=== PATIENT | female | born 1945 | race Caucasian/White ===

== ENCOUNTER 2017-08-29 05:32 | Inpatient (IN) | payer MEDICARE ==
[~2017-08-29] VITALS: Ht 152.4 cm; Wt 66.3 kg
[~2017-08-29 05:32] MED LIST: ALLO100T PO; AMLO5 PO; ERGO50000 PO; FERR325T PO; LORA0.5T PO; METO25 PO; MULT-65 PO; SODI650T PO; ZOLP5TAB3 PO
[2017-08-29] MEDS ORDERED: LACTATED RINGER'S 1000 ML IV PRN (06:15)
[2017-08-29] MEDS ORDERED: SODIUM CHLORID 0.9% 500 ML IV PRN (06:15)
[2017-08-29] MEDS ORDERED: DEXAMETHASONE SOD PHOS 20 MG/5 ML VIAL IV SCH (06:15)
[2017-08-29] MEDS ORDERED: METOPROLOL TARTRATE 25 MG TAB PO PRN (06:15)
[2017-08-29] MEDS ORDERED: ceFAZolin 2 GM PREMIX 50 ML IV SCH (06:15)
[2017-08-29] MEDS ORDERED: POVIDONE IODINE 7.5% SCRUB 118 ML BOTTLE TOPICAL SCH (06:15)
--- NOTE | 2017-08-29 06:56 | HHI.DCPOC ---
Discharge Care Plan Diagnosis: (1) Primary localized osteoarthrosis, lower leg (2) Status post total knee replacement, right Your Health Problems Are: Difficulty with ADL Goals to Promote Your Health * To prevent worsening of your condition and complications * To maintain your health at the optimal level Directions to Meet Your Goals Take your medications as prescribed Follow your dietary instruction Follow activity as directed Keep your appointments as scheduled Take your immunizations and boosters as scheduled If your symptoms worsen call your PCP, if no PCP go to Urgent Care Center or Emergency Room Smoking is Dangerous to Your Health. Avoid second hand smoke Call the 24-hour hour crisis hotline for domestic abuse at Antoni Feliciano Aug 29, 2017 06:56
[2017-08-29] MEDS ORDERED: BUPIVACAINE LIPOSOME PF 1.3% 20 ML VIAL ONE ×2 (06:58→08:29)
--- NOTE | 2017-08-29 06:58 | HHI.FF ---
Face to Face Verification Diagnosis: (1) Primary localized osteoarthrosis, lower leg (2) Status post total knee replacement, right Physical Therapy Gait training, Transfer training, bed to chair Knee: Total knee Nursing Nursing: Renée teaching Additional Instructions first dressing change in the office I have seen patient Rashida Santos on 08/29/17. My clinical findings support the need for the requested home health care services because: Limited ability to care for self High risk of falls I certify that my clinical findings support that this patient is homebound because: Post-op weakness Unsteady gait/balance Antoni Feliciano Aug 29, 2017 06:58
[2017-08-29] MEDS ORDERED: COMMODE 3-IN-11 MIS (06:59)
[2017-08-29] MEDS ORDERED: WALKER WHEELS/F1 MIS (06:59)
[2017-08-29] MEDS ORDERED: CPMMACHINE (06:59)
[2017-08-29] MEDS ORDERED: GENTAMICIN SULFATE 80 MG/2 ML VIAL ONE (07:07)
[2017-08-29] MEDS ORDERED: ALLO100T PO (07:08)
[2017-08-29] MEDS ORDERED: AMLO5 PO (07:09)
[2017-08-29] MEDS ORDERED: FERR325T18 PO (07:09)
[2017-08-29] MEDS ORDERED: VITA500012 PO (07:10)
[2017-08-29] MEDS ORDERED: LORA0.5T PO (07:10)
[2017-08-29] MEDS ORDERED: METO25TA3 PO (07:11)
[2017-08-29] MEDS ORDERED: SODI325T PO (07:12)
[2017-08-29] MEDS ORDERED: ZOLP5TAB3 PO (07:12)
[2017-08-29] MEDS ORDERED: SODIUM CHLORIDE 0.9% IV SCH ×2 (08:30→12:00)
[2017-08-29] MEDS ORDERED: TRANEXAMIC ACID IV SCH ×2 (08:30→12:00)
[2017-08-29] MEDS: VANCOMYCIN 1000 MG/NS 250 ML (for <70 kg) IV SCH ×4 (08:40→11:26)
[2017-08-29] MEDS: ROPIVACAINE PERI-ARTICULAR INJECTION. P-ARTICULR SCH ×10 (09:24→11:25)
--- NOTE | 2017-08-29 10:27 | PD.OP ---
cc: Manny Zarate MD Operative Report Date of Surgery: Aug 29, 2017 Preoperative Diagnosis: Right knee severe osteoarthritis Postoperative Diagnosis: Same plus significant osteoporosis Procedure: Right total knee arthroplasty Anesthesia: General anesthesia and adductor canal block Surgeon: Manny Zarate Scientist Propagator(s): DIO Patel The surgical procedure was assisted by my Advanced Registered Nurse Practitioner. My MANAGER MARKETING COMMUNICATIONS presence was necessary throughout this case for the manipulation and positioning of the surgical extremity. My MANAGER MARKETING COMMUNICATIONS was assisting me throughout the duration of this procedure. The skill set of an Advance Registered Nurse Practitioner was medically necessary to complete this procedure. During the surgical case, the operating room surgical technologist was working at the back table and the Advance Registered Nurse Practitioner was directly assisting me. Operation and Findings: IMPLANTS: DePuy Attune: Patella: size 32. Femur, posterior stabilized size 6. Tibia, rotating platform size 6. Tibial insert, rotating platform, posterior stabilized size 5 mm thickness. ESTIMATED BLOOD LOSS: 150 cc TOURNIQUET TIME: 43 minutes at 250 mmHg pressure. JUSTIFICATION FOR PROCEDURE: The patient has end-stage osteoarthritis to the knee. There is an attached conservative measures pathway form in the chart that describes the nonoperative measures that were undertaken prior to consideration of surgical management. The patient understood the risks and benefits of surgical management. See my office notes for further details PROCEDURE: The patient was brought back to the operative theatre. Adequate anesthesia was obtained. The patient received intravenous vancomycin and Ancef. The lower extremity was prepped and draped in the usual sterile fashion.The leg was exsanguinated, the tourniquet was raised. A standard anterior incision was performed followed by medial parapatellar arthrotomy was performed. End-stage arthritis was identified. Osteotomy of the patella was performed. It was at this point that we noticed the patient had extreme osteoporosis and the bone was very thin. This was consistent with all of the remaining portion of the surgery when handling the bone. We took extreme care on each step so as not to produce a fracture. We drilled holes for the patella. We trialed the patella component. We placed an intramedullary guide into the distal femur. We ultimately resected 14 mm off of the distal femur in 5 degrees of valgus. The remnants of the ACL and PCL were resected. Osteotomy of the proximal tibia was performed, resecting 5 mm off of the medial side. This was done with 3 degrees of posterior slope using an extramedullary guide. The distal end of the guide was placed in the mid aspect of the ankle. The femur was sized, and four chamfer cuts were completed in 3 of external rotation. We then cut the central box in the distal femur to replace the PCL. We resected the remnants of the menisci and removed osteophytes off of the femur and tibia. We then trialed the knee. We punched the tibia for the keel, and then used standard technique to cement in components. Excess cement was removed. We trialed the knee again and the final polyethylene thickness was chosen to provide extension to 0 degrees, and flexion of 140 degrees to gravity. The ligaments were appropriately balanced. Lateral release was necessary to obtain excellent patellofemoral tracking. The tourniquet was released and adequate hemostasis was obtained. An intra- articular injection of a ropivacaine cocktail was injected. The posterior knee was inspected for excess cement, which was removed. The final polyethylene was put into position after thorough irrigation. We then closed deep fascia with a #2 Stratafix followed by skin with 2-0 Vicryl followed by daniel. Postop plan is to weight-bear as tolerated. DVT prophylaxis will be performed with SCDs, ABHILASH hose, early mobilization, and Lovenox followed by aspirin. Additionally the patient will be need to evaluated for the osteoporosis and started on likely more aggressive management. Manny Zarate MD Aug 29, 2017 10:27
[2017-08-29] MEDS ORDERED: NORC5TAB PO (10:29)
[2017-08-29] MEDS ORDERED: ASPI-146 PO (10:29)
[2017-08-29] MEDS ORDERED: ENOX40IN SQ (10:29)
[2017-08-29] MEDS ORDERED: MAGNESIUM HYDROXIDE SUSP 30 ML CUP PO PRN (10:30)
[2017-08-29] MEDS ORDERED: ONDANSETRON HCL 4 MG/2 ML VIAL IVP PRN (10:30)
[2017-08-29] MEDS ORDERED: Post-op Orders (for Pharmacy) XX ONE (10:30)
[2017-08-29] MEDS ORDERED: ACETAMINOPHEN/HYDROcodone 325 MG/5 MG TAB PO PRN (10:30)
[2017-08-29] MEDS ORDERED: NALOXONE HCL 0.4 MG/ML AMP IV PUSH PRN (10:30)
[2017-08-29] MEDS ORDERED: ALUMINUM/MAGNESIUM/SIMETH 30 ML CUP PO PRN (10:30)
[2017-08-29] MEDS ORDERED: diphenhydrAMINE HCL 50 MG/ML VIAL IV PUSH PRN (10:30)
[2017-08-29] MEDS ORDERED: BISACODYL 10 MG SUPP RECTAL PRN (10:30)
[2017-08-29] MEDS ORDERED: ACETAMINOPHEN 1000 MG/100 ML 100 ML IV ONE (10:57)
[2017-08-29] MEDS ORDERED: DO NOT ADM ANY ANTICOAGULANT DRUGS PRN (11:00)
--- NOTE | 2017-08-29 11:11 | PD.CONS ---
HPI Service [facility] Hospitalists Consult Requested By Dr. Zarate Reason for Consult Post-op medical management Primary Care Physician Abhijeet Torrez MD Diagnoses: History of Present Illness This is a 72 year old female patient with a past medication history which includes ulcerative colitis/ileostomy, hx RCC s/p right nephrectomy, and stage 3 /4 ckd. Patient underwent total knee arthroplasty 08/29/17. We have been consulted for post-operative medical management. Patient in bed awake and alert. Offers no complaints at this time. Denies fevers, chills, N/V/D/C, chest pain or shortness of breath. Patient reports minimal post-op pain. Review of Systems Constitutional: DENIES: Fatigue, Fever, Chills Eyes: DENIES: Blurred vision, Diplopia, Vision loss Respiratory: DENIES: Cough, Sputum production, Shortness of breath Cardiovascular: DENIES: Chest pain, Palpitations, Dyspnea on Exertion Gastrointestinal: DENIES: Abdominal pain, Constipation, Diarrhea, Nausea, Vomiting Musculoskeletal: COMPLAINS OF: Joint pain (minimal), Stiffness Neurologic: DENIES: Headache, Seizures, Speech Problems Psychiatric: DENIES: Anxiety, Confusion, Depression Past Family Social History Past Medical History RCC s/p right nephrectomy 2003 Ulcerative colitis with colectomy and ileostomy right noel ckd stage 4. HTN Hyperlipidemia Osteoporosis Anxiety Vitamin D deficiency Mitral valve prolapse Cervical disc disease Past Surgical History Reduction and internal fixation of the left hip with cannulated screws With Dr. Brandon Mcgarry on 04/25/15 Total colectomy and ileostomy in 1991 Appendectomy JERRELL with BSO Tonsillectomy/Adenoidectomy Arthroscopy of both knees Reported Medications Enoxaparin Inj (Enoxaparin Sodium) 40 Mg/0.4 Ml Syr 40 Mg SQ DAILY Start Aspirin after Lovenox is completed. Ecotrin Regular Strength (Aspirin) 325 Mg Tabdr 325 Mg PO DAILY Start Aspirin after Lovenox is completed. [place] (Hydrocodone-Acetaminophen) 5 Mg-325 Mg Tab 1-2 Tab PO Q4H PRN Zolpidem (Zolpidem Tartrate) 5 Mg Tab 5 Mg PO HS PRN Sodium Bicarbonate 325 Mg Tab 325 Mg PO BIDPC Metoprolol Tartrate 25 Mg Tab 25 Mg PO BID Lorazepam 0.5 Mg Tab 0.5 Mg PO Q6H PRN Ergocalciferol 50,000 Unit Cap 50,000 Units PO Q7D Ferrous Sulfate 325 Mg (65 Mg Iron) Tablet 325 Mg PO DAILY Norvasc (Amlodipine Besylate) 5 Mg Tab 5 Mg PO DAILY Allopurinol 100 Mg Tab 100 Mg PO DAILY Multi-Vitamin Daily (Multiple Vitamin) 1 Tab Tab 1 Tab PO DAILY Allergies: Coded Allergies: diatrizoate meglumine (Unverified Allergy, Severe, 08/29/17) gadobenic acid (Unverified Allergy, Severe, 08/29/17) gadodiamide (Unverified Allergy, Severe, 08/29/17) gadoteridol (Unverified Allergy, Severe, 08/29/17) iodixanol (Unverified Allergy, Severe, 08/29/17) iohexol (Unverified Allergy, Severe, 08/29/17) lisinopril (Unverified Adverse Reaction, Severe, Hypotension, 08/29/17) BPS DROPPED DOWN TO 60 AFTER ONE DOSE OF LISINOPRIL - 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 AND HAD THE SAME THING HAPPEN sulfamethoxazole (Unverified Adverse Reaction, Severe, Swelling, 08/29/17) pt only has one kidney trimethoprim (Unverified Adverse Reaction, Severe, Swelling, 08/29/17) pt only has one kidney Active Ordered Medications Current Medications Medications (Trade) Dose Ordered Sig/Marilee Route Start Time Stop Time Status Last Admin Lactated Ringer's 1,000 ml @ 30 mls/hr Q24H PRN IV 08/29/17 06:15 09/01/17 06:14 08/29/17 07:10 Sodium Chloride 500 ml @ 30 mls/hr [id number] PRN IV 08/29/17 06:15 09/01/17 06:14 (Lopressor) 25 mg RENAL DIETITIAN PRN PO 08/29/17 06:15 09/01/17 06:14 (Betadine 7.5% Scrub) 1 applic ONCE TOPICAL 08/29/17 06:15 09/01/17 06:14 Cefazolin Sodium/ Dextrose 50 ml @ 100 mls/hr RENAL DIETITIAN IV 08/29/17 06:15 09/01/17 06:14 08/29/17 08:40 Vancomycin HCl 1000 mg/Sodium Chloride 250 ml @ 250 mls/hr RENAL DIETITIAN IV 08/29/17 06:15 09/01/17 06:14 08/29/17 08:40 Tranexamic Acid 558 mg/Sodium Chloride 105.58 ml @ 200 mls/ hr ONCE IV 08/29/17 08:30 08/29/17 14:30 08/29/17 09:08 Ropivacaine 24.63 ml/Ketorolac Tromethamine 30 mg/Epinephrine HCl 0.5 mg/ Clonidine 80 mcg/ Sodium Chloride 100 ml @ 200 mls/hr ONCE P-ARTICULR 08/29/17 08:30 08/29/17 14:30 08/29/17 09:24 (Decadron Inj) 10 mg RENAL DIETITIAN IV 08/29/17 06:15 08/30/17 06:14 08/29/17 07:14 (Zyloprim) 100 mg DAILY PO 08/30/17 09:00 UNV (Norvasc) 5 mg DAILY PO 08/30/17 09:00 UNV (Drisdol) 50,000 units Q7D PO 08/29/17 10:30 UNV (Ferrous Sulfate) 325 mg DAILY PO 08/30/17 09:00 UNV (Ativan) 0.5 mg Q6H PRN PO 08/29/17 10:30 UNV (Lopressor) 25 mg BID PO 08/29/17 21:00 UNV (Sodium Bicarbonate) 325 mg BIDPC PO 08/29/17 18:00 UNV (Ambien) 5 mg HS PRN PO 08/29/17 10:30 UNV Sodium Chloride 1,000 ml @ 100 mls/hr Q10H IV 08/29/17 10:23 UNV Cefazolin Sodium 1000 mg/Sodium Chloride 100 ml @ 200 mls/hr Q6H IV 08/29/17 10:30 08/29/17 22:59 UNV (Post-op Orders (for Pharmacy)) STAT ONCE XX 08/29/17 10:30 08/29/17 10:31 UNV (Decadron Inj) 10 mg ONCE ONCE IV 08/30/17 07:45 08/30/17 07:46 UNV (Lovenox Inj) 40 mg Q24H SQ 08/29/17 10:30 09/07/17 10:31 UNV ([place] 5-325 Mg) 1 tab Q4H PRN PO 08/29/17 10:30 UNV ([place] 5-325 Mg) 2 tab Q4H PRN PO 08/29/17 10:30 UNV Tranexamic Acid / Sodium Chloride 100 ml @ 200 mls/hr UNSCH IV 08/29/17 10:30 08/29/17 10:59 UNV (Theragran M Tab) 1 tab BID PO 08/30/17 21:00 10/29/17 20:59 UNV (Zofran Inj) 4 mg Q6H PRN IVP 08/29/17 10:30 UNV (Colace) 100 mg BID PO 08/30/17 21:00 UNV (Mag-Al Plus Susp Liq) 30 ml Q6H PRN PO 08/29/17 10:30 UNV (Dulcolax Supp) 10 mg DAILY PRN MA 08/29/17 10:30 UNV (Milk Of Magnesia Liq) 30 ml DAILY PRN PO 08/29/17 10:30 UNV (Narcan Inj) 0.4 mg UNSCH PRN IV PUSH 08/29/17 10:30 UNV (Benadryl Inj) 25 mg Q6H PRN IV PUSH 08/29/17 10:30 UNV (Morphine Inj) 2 mg Q3H PRN IV PUSH 08/29/17 10:30 UNV Family History Noncontributory Social History denies tobacco use or etoh use Physical Exam Vital Signs Vital Signs Date Time Temp Pulse Resp B/P (MAP) Pulse Ox O2 Delivery O2 Flow Rate FiO2 08/29/17 07:00 98.8 69 20 138/71 (93) 99 Physical Exam GENERAL: This is a well-nourished, well-developed patient, in no apparent distress. SKIN: No rashes, ecchymoses or lesions. Cool and dry. HEAD: Atraumatic. Normocephalic. No temporal or scalp tenderness. EYES: Pupils equal round and reactive. Extraocular motions intact. No scleral icterus. No injection or drainage. ENT: Nose without bleeding, purulent drainage or septal hematoma. Throat without erythema, tonsillar hypertrophy or exudate. Uvula midline. Airway patent. NECK: Trachea midline. No JVD or lymphadenopathy. Supple, nontender, no meningeal signs. CARDIOVASCULAR: Regular rate and rhythm without murmurs, gallops, or rubs. RESPIRATORY: Clear to auscultation. Breath sounds equal bilaterally. No wheezes , rales, or rhonchi. GASTROINTESTINAL: Abdomen soft, non-tender, nondistended. No hepato-splenomegaly , or palpable masses. No guarding. MUSCULOSKELETAL: Extremities without clubbing, cyanosis, or edema. No joint tenderness, effusion, or edema noted. No calf tenderness. Negative Homans sign bilaterally. NEUROLOGICAL: Awake and alert. Cranial nerves II through XII intact. Motor and sensory grossly within normal limits. Five out of 5 muscle strength in all muscle groups. Normal speech. Assessment and Plan Problem List: (1) Osteoarthritis of right knee ICD Codes: M17.11 - Unilateral primary osteoarthritis, right knee Plan: s/p right total knee arthroplasty with Dr. Zarate 08/29/17 (2) CKD (chronic kidney disease) stage 4, GFR 15-29 ml/min ICD Codes: N18.4 - Chronic kidney disease, stage 4 (severe) Status: Chronic Plan: Pt has been borderline stage 3 and sometime stage 4. monitor (3) Hypertension ICD Codes: I10 - Hypertension Status: Chronic Plan: continue home meds monitor trend (4) Ulcerative colitis ICD Codes: K51.90 - Ulcerative colitis Status: Chronic (5) History of renal cell carcinoma ICD Codes: Z85.528 - Personal history of other malignant neoplasm of kidney Status: Resolved Assessment and Plan Patient examined. Assessment and plan formulated with Katherine Lockett PA-C. I agree with the above. Katherine Lockett Aug 29, 2017 11:11 Dharmesh Loya DO Sep 03, 2017 01:21
[2017-08-29] MEDS ORDERED: *morphine SULFATE 8 MG/ML PERIprocedure ONLY ONE (11:19)
[2017-08-29] MEDS: SODIUM CHLOR 0.9% 1000 ML INJ 1,000 ML IV SCH ×2 (11:25→23:00)
--- NOTE | 2017-08-29 11:59 | RADRPT ---
EXAM DATE/TIME: 08/29/2017 11:23 [place] COMPARISON: No previous studies available for comparison. INDICATIONS : Post op right knee surgery. MEDICAL HISTORY : None. SURGICAL HISTORY : None. ENCOUNTER: Initial ACUITY: 1 day PAIN SCORE: 5/10 LOCATION: Right knee FINDINGS: Two view examination of the right knee demonstrates postoperative right total knee placement. Normal alignment. Air in soft tissues. No acute findings. CONCLUSION: Postoperative right knee replacement. No complications identified. Brain Solomon MD on August 29, 2017 at 11:57 Board Certified Radiologist. This report was verified electronically.
[2017-08-29] MEDS ORDERED: LORazepam 0.5 MG TAB PO PRN (13:00)
[2017-08-29] MEDS ORDERED: MORPHINE SULFATE 2 MG/ML INJ IV PUSH PRN (13:15)
[2017-08-29] MEDS ORDERED: ERGOCALCIFEROL (VIT D2) 50,000 UNIT CAP PO SCH (14:00)
[2017-08-29] MEDS: ACETAMINOPHEN/HYDROcodone 325 MG/5 MG TAB PO PRN ×2 (14:58→18:58)
[2017-08-29 16:00] VITALS: BP 116/56; PULSE 85; RESP 17; TEMP 96.5; O2SAT 97
[2017-08-29] MEDS: SODIUM BICARBONATE 325 MG TAB PO SCH (18:58)
[2017-08-29 20:00] VITALS: BP 119/56; PULSE 87; RESP 20; TEMP 96.1; O2SAT 96
[2017-08-29] MEDS: METOPROLOL TARTRATE 25 MG TAB PO SCH (20:50)
[2017-08-29] MEDS: ZOLPIDEM TARTRATE 5 MG TAB PO PRN (23:38)
[2017-08-30] VITALS (11 sets, daily range): BP systolic 102–170; BP diastolic 47–67; PULSE 64–94; RESP 16–20; TEMP 96–99; O2SAT 96–100
[2017-08-30] MEDS: ACETAMINOPHEN/HYDROcodone 325 MG/5 MG TAB PO PRN ×4 (03:20→18:43)
[2017-08-30 06:30] LABS: HEMATOCRIT 22.2 % (35.0-46.0); MEAN CELL VOLUME 85.8 FL (80.0-100.0); MEAN CORPUSCULAR HEMOGLOBIN 28.1 PG (27.0-34.0); MEAN CORPUSCULAR HGB CONC 32.7 % (32.0-36.0); PLATELET COUNT 197 TH/MM3 (150-450); RED BLOOD COUNT 2.59 MIL/MM3 (4.00-5.30); REVIEW FLAG FINAL; WHITE BLOOD COUNT 12.6 TH/MM3 (4.0-11.0)
[2017-08-30 07:23] LABS: BICARBONATE 19.3 MEQ/L (21.0-32.0); POTASSIUM 4.9 MEQ/L (3.5-5.1)
[2017-08-30] MEDS ORDERED: DEXAMETHASONE SOD PHOS 20 MG/5 ML VIAL IV ONE (07:45)
[2017-08-30] MEDS ORDERED: FUROSEMIDE 20 MG/2 ML VIAL IV PUSH ONE ×2 (08:00→09:30)
[2017-08-30] MEDS: amLODIPine BESYLATE 5 MG TAB PO SCH (09:00)
[2017-08-30] MEDS: METOPROLOL TARTRATE 25 MG TAB PO SCH ×2 (09:00→22:20)
[2017-08-30] MEDS: SODIUM CHLOR 0.9% 1000 ML INJ 1,000 ML IV SCH (09:00)
[2017-08-30] MEDS ORDERED: SODIUM CHLOR 0.9% 250 ML INJ 250 ML IV ONE (09:30)
[2017-08-30] MEDS: ALLOPURINOL 100 MG TAB PO SCH (09:59)
[2017-08-30] MEDS: FERROUS SULFATE 325 MG (65 MG ELEMENTAL IRON) TAB PO SCH (09:59)
[2017-08-30] MEDS: SODIUM BICARBONATE 325 MG TAB PO SCH ×2 (09:59→18:42)
[2017-08-30] MEDS: ENOXAPARIN SODIUM 40 MG/0.4 ML SYRINGE SQ SCH (10:00)
[2017-08-30 10:22] LABS: BICARBONATE 20.7 MEQ/L (21.0-32.0); POTASSIUM 4.8 MEQ/L (3.5-5.1)
--- NOTE | 2017-08-30 13:01 | PD.ORT.PN ---
Subjective Post Op Day #: 1 Subjective Remarks Patient is OOB in chair with mild pain to the right knee. Patient has been ambulatory. Nursing staff having difficult time starting IV for blood transfusion. IV access obtained by undersigned. Objective Vitals Vital Signs Date Time Temp Pulse Resp B/P (MAP) Pulse Ox O2 Delivery O2 Flow Rate FiO2 08/30/17 08:00 96.7 66 18 102/47 (65) 100 08/30/17 04:00 96.5 64 20 115/56 (75) 100 08/30/17 00:00 96.0 68 20 121/59 (79) 100 08/29/17 20:00 96.1 87 20 119/56 (77) 96 08/29/17 16:00 96.5 85 17 116/56 (76) 97 08/29/17 13:00 74 16 131/60 (83) 100 Room Air I/O 08/29/17 08/29/17 08/29/17 08/30/17 08/30/17 08/30/17 07:00 15:00 23:00 07:00 15:00 23:00 Intake Total 1210 ml 480 ml Output Total 100 ml Balance 1110 ml 480 ml Intake Oral 480 ml IV Total 110 ml Other 1100 ml Output Estimated Blood Loss 100 ml # Voids 2 Result Diagram: 08/30/17 0532 08/30/17 0938 Procedures Right TKA Objective Remarks Patient's dressing has small serosanguineous drainage. Dressing changed. Dermabond mesh intact. No redness or s/s of infection. Moderate swelling to the knee. EHL/TA/G intact. 2+ pedal pulse. Calf is soft and nontender. + SILT. Mild ecchymosis. Assessment & Plan Ortho Post Op Day #: 1 Problem List: Assessment and Plan POD #1: Right TKA 1. WBAT RLE 2. Lovenox followed by ASA for DVT prophylaxis 3. Ice to the right knee PRN 4. Stable for discharge home today or tomorrow with home health 5. F/U in the office with Dr. Zarate or DIO Singh as previously scheduled. 6. IV access obtained for blood transfusion to address post op anemia Antoni Feliciano Aug 30, 2017 13:01
--- NOTE | 2017-08-30 13:46 | HHI.PR ---
Subjective Remarks Patient reports feeling well hgb this AM 7.3 2 units PRBC ordered Objective Vitals Vital Signs Date Time Temp Pulse Resp B/P (MAP) Pulse Ox O2 Delivery O2 Flow Rate FiO2 08/30/17 08:00 96.7 66 18 102/47 (65) 100 08/30/17 04:00 96.5 64 20 115/56 (75) 100 08/30/17 00:00 96.0 68 20 121/59 (79) 100 08/29/17 20:00 96.1 87 20 119/56 (77) 96 08/29/17 16:00 96.5 85 17 116/56 (76) 97 Result Diagram: 08/30/17 0532 08/30/17 0938 Other Results Laboratory Tests Test 08/30/17 05:32 08/30/17 09:38 White Blood Count 12.6 TH/MM3 Red Blood Count 2.59 MIL/MM3 Hemoglobin 7.3 GM/DL Hematocrit 22.2 % Mean Corpuscular Volume 85.8 FL Mean Corpuscular Hemoglobin 28.1 PG Mean Corpuscular Hemoglobin Concent 32.7 % Red Cell Distribution Width 14.0 % Platelet Count 197 TH/MM3 Mean Platelet Volume 9.5 FL Blood Urea Nitrogen 34 MG/DL 31 MG/DL Creatinine 1.82 MG/DL 1.99 MG/DL Random Glucose 94 MG/DL 171 MG/DL Calcium Level 8.1 MG/DL 8.1 MG/DL Sodium Level 139 MEQ/L 139 MEQ/L Potassium Level 4.9 MEQ/L 4.8 MEQ/L Chloride Level 111 MEQ/L 109 MEQ/L Carbon Dioxide Level 19.3 MEQ/L 20.7 MEQ/L Anion Gap 9 MEQ/L 9 MEQ/L Estimat Glomerular Filtration Rate 27 ML/MIN 24 ML/MIN Imaging Last Impressions Knee X-Ray 08/29/17 1023 Signed Impressions: Service Date/Time: Tuesday, August 29, 2017 11:23 - CONCLUSION: Postoperative right knee replacement. No complications identified. Brain Solomon MD Objective Remarks GENERAL: This is a well-nourished, well-developed patient, in no apparent distress. CARDIOVASCULAR: Regular rate and rhythm without murmurs, gallops, or rubs. RESPIRATORY: Clear to auscultation. Breath sounds equal bilaterally. No wheezes , rales, or rhonchi. GASTROINTESTINAL: Abdomen soft, non-tender, nondistended. No hepato-splenomegaly , or palpable masses. No guarding. MUSCULOSKELETAL: Extremities without clubbing, cyanosis, or edema. No joint tenderness, effusion, or edema noted. No calf tenderness. Negative Homans sign bilaterally. NEUROLOGICAL: Awake and alert. No focal deficits noted. Motor and sensory grossly within normal limits. Five out of 5 muscle strength in all muscle groups , with the exception surgical lower extremity. Normal speech. A/P Problem List: (1) Osteoarthritis of right knee ICD Codes: M17.11 - Unilateral primary osteoarthritis, right knee Plan: s/p right total knee arthroplasty with Dr. Zarate 08/29/17 hgb this 7.3 2 units PRBCs ordered recheck CBC in AM (2) CKD (chronic kidney disease) stage 4, GFR 15-29 ml/min ICD Codes: N18.4 - Chronic kidney disease, stage 4 (severe) Status: Chronic Plan: Pt has been borderline stage 3 and sometime stage 4. monitor (3) Hypertension ICD Codes: I10 - Hypertension Status: Chronic Plan: continue home meds monitor trend (4) Ulcerative colitis ICD Codes: K51.90 - Ulcerative colitis Status: Chronic (5) History of renal cell carcinoma ICD Codes: Z85.528 - Personal history of other malignant neoplasm of kidney Status: Resolved Assessment and Plan Patient examined. Assessment and plan formulated with Katherine Lockett PA-C. I agree with the above. Katherine Lockett Aug 30, 2017 13:46 Dharmesh Loya DO Sep 03, 2017 01:21
[2017-08-30] MEDS: DOCUSATE SODIUM 100 MG CAP PO SCH ×2 (21:00→22:20)
[2017-08-30] MEDS: ZOLPIDEM TARTRATE 5 MG TAB PO PRN (22:18)
[2017-08-30] MEDS: MULTIVITAMINS/MINERALS THERAPEUTIC TAB PO SCH (22:20)
[2017-08-31] VITALS: BP 128/61; PULSE 74; RESP 18; TEMP 97.1; O2SAT 96
[2017-08-31] MEDS: ACETAMINOPHEN/HYDROcodone 325 MG/5 MG TAB PO PRN ×3 (01:22→11:28)
[2017-08-31 04:00] VITALS: BP 123/60; PULSE 65; RESP 18; TEMP 97.6; O2SAT 98
[2017-08-31 04:56] LABS: AUTOMATED NEUTROPHIL # 7.9 TH/MM3 (1.8-7.7); BASOPHIL % 0.4 % (0.0-2.0); EOSINOPHIL % 0.1 % (0.0-4.0); HEMATOCRIT 27.2 % (35.0-46.0); LYMPHOCYTE # 0.7 TH/MM3 (1.0-4.8); MEAN CELL VOLUME 81.5 FL (80.0-100.0); MEAN CORPUSCULAR HEMOGLOBIN 27.3 PG (27.0-34.0); MEAN CORPUSCULAR HGB CONC 33.5 % (32.0-36.0); MONO % 12.9 % (0.0-8.0); NEUT % 79.6 % (16.0-70.0); PLATELET COUNT 175 TH/MM3 (150-450); RED BLOOD COUNT 3.33 MIL/MM3 (4.00-5.30); RED CELL DISTRIBUTION WIDTH 19.1 % (11.6-17.2)
[2017-08-31 04:57] LABS: HEMO FLAGS AUTO DIFF
[2017-08-31] MEDS: SODIUM CHLOR 0.9% 1000 ML INJ 1,000 ML IV SCH (05:00)
[2017-08-31 07:33] LABS: ACANTHOCYTES OCC (NORMAL); BANDS 5 % (0-6); KERATOCYTES OCC (NORMAL); MYELOCYTES 1 % (0-0); NEUTROPHIL # MANUAL DIFF 9.1 TH/MM3 (1.8-7.7); PLATELET ESTIMATE SMEAR NORMAL (NORMAL); PLATELET MORPHOLOGY NORMAL (NORMAL); POLYS (SEG NEUTROPHILS) 85 % (16-70); SCAN/DIFF FINAL DIFF MANUAL; WBC DIFF SAMPLE 100
[2017-08-31 08:00] VITALS: BP 130/60; PULSE 74; RESP 18; TEMP 97; O2SAT 97
[2017-08-31] MEDS: ALLOPURINOL 100 MG TAB PO SCH (08:29)
[2017-08-31] MEDS: FERROUS SULFATE 325 MG (65 MG ELEMENTAL IRON) TAB PO SCH (08:29)
[2017-08-31] MEDS: amLODIPine BESYLATE 5 MG TAB PO SCH (08:29)
[2017-08-31] MEDS: DOCUSATE SODIUM 100 MG CAP PO SCH (08:29)
[2017-08-31] MEDS: METOPROLOL TARTRATE 25 MG TAB PO SCH (08:29)
[2017-08-31] MEDS: MULTIVITAMINS/MINERALS THERAPEUTIC TAB PO SCH (08:29)
[2017-08-31] MEDS: SODIUM BICARBONATE 325 MG TAB PO SCH (08:29)
[2017-08-31] MEDS: ENOXAPARIN SODIUM 40 MG/0.4 ML SYRINGE SQ SCH (10:22)
--- NOTE | 2017-09-04 21:12 | HHI.DS ---
Discharge Summary Admission Date Aug 29, 2017 at 05:32 Discharge Date: Aug 31, 2017 Admitting Diagnosis Primary localized OA of the lower leg Status post total knee replacement, right Diagnosis: (1) Primary localized osteoarthrosis, lower leg Diagnosis: Principal ICD Codes: M17.10 - Unilateral primary osteoarthritis, unspecified knee (2) Status post total knee replacement, right Diagnosis: Principal ICD Codes: Z96.651 - Presence of right artificial knee joint Procedures Right TKA Brief History This is a 72 year old female patient with severe OA of the right knee. CBC/BMP: 08/31/17 0436 PE at Discharge Patient's dressing has small serosanguineous drainage. Dressing changed. Dermabond mesh intact. No redness or s/s of infection. Moderate swelling to the knee. EHL/TA/G intact. 2+ pedal pulse. Calf is soft and nontender. + SILT. Mild ecchymosis. Hospital Course The patient was admitted to the hospital for severe OA of the right knee to have a right TKA. The patient's surgery went well with no complications. The patient is WBAT. The patient is on a regular diet. The patient was placed on Lovenox followed by ASA for DVT prophylaxis. The patient was discharged home with home health and will f/u in the office with Dr. Zarate or DIO Singh as previously scheduled. Pt Condition on Discharge: Stable Discharge Disposition: Disch w/ Home Health Serv Discharge Instructions Diet Instructions: As Tolerated, No Restrictions Activities You Can Perform: Weight Bearing as [place] Activities to Avoid: Strenuous Activity Follow up Referrals: Orthopedics with Manny Zarate MD New Orders: BASIC METABOLIC PROF - 1 Week CBC NO DIFF - 1 Week New Medications: Aspirin DR (Ecotrin Regular Strength) 325 Mg Tabdr 325 MG PO DAILY for Prevent Blood Clot, #30 TAB 0 Refills NS Start Aspirin after Lovenox is completed. Commode 3-in-1 (Commode 3-in-1) 1 Mis Mis EA .ROUTE DIRECTED, #1 0 Refills CPM-Continuous Passive Motion Machine (CPM-Continuous Passive Motion Machine) 1 Ea Device EA .ROUTE DIRECTED, #1 0 Refills Enoxaparin Inj (Enoxaparin Inj) 40 Mg/0.4 Ml Syr 40 MG SQ DAILY for Blood Clot Prevention, #10 SYRINGE 0 Refills Start Aspirin after Lovenox is completed. Hydrocodone-Acetaminophen ([place]) 5 Mg-325 Mg Tab 1-2 TAB PO Q4H PRN for PAIN, #60 TAB 0 Refills Walker with Front Wheels (Walker with Front Wheels) 1 Mis Mis EA .ROUTE DIRECTED, #1 0 Refills Continued Medications: Allopurinol (Allopurinol) 100 Mg Tab 100 MG PO DAILY for Gout, #30 TAB 0 Refills Amlodipine (Norvasc) 5 Mg Tab 5 MG PO DAILY for Blood Pressure Management, #30 TAB 0 Refills Ergocalciferol (Ergocalciferol) 50,000 Unit Cap 20056 UNITS PO Q7D for Nutritional Supplement, #30 CAP 0 Refills Ferrous Sulfate (Ferrous Sulfate) 325 Mg (65 Mg Iron) Tablet 325 MG PO DAILY for Nutritional Supplement, #30 TAB 0 Refills Lorazepam (Lorazepam) 0.5 Mg Tab 0.5 MG PO Q6H PRN for ANXIETY, TAB 0 Refills Metoprolol Tartrate (Metoprolol Tartrate) 25 Mg Tab 25 MG PO BID, #60 TAB 0 Refills Multiple Vitamin (Multi-Vitamin Daily) 1 Tab Tab 1 TAB PO DAILY for Nutritional Supplement, TAB 0 Refills Sodium Bicarbonate (Sodium Bicarbonate) 325 Mg Tab 325 MG PO BIDPC, #60 TAB 0 Refills Zolpidem (Zolpidem) 5 Mg Tab 5 MG PO HS PRN for INSOMNIA, TAB 0 Refills Antoni Feliciano Sep 04, 2017 21:12
== END 2017-08-31 11:36 | disposition home health service (06) | DRG 470 ==
LOC: HSDI 05:32 → N06A 13:42
PROVIDERS: ADMIT Orthopaedic Surgery; ATTEND Orthopaedic Surgery
PROC: 3E0T3BZ Introduction of Anesthetic Agent into Peripheral Nerves and Plexi, Percutaneous Approach (ICD-10-PCS; 2017-08-29)
PROC: 0SRC0J9 Replacement of Right Knee Joint with Synthetic Substitute, Cemented, Open Approach (ICD-10-PCS; principal; 2017-08-29 08:28)
PROC: 30233N1 Transfusion of Nonautologous Red Blood Cells into Peripheral Vein, Percutaneous Approach (ICD-10-PCS; 2017-08-30)
DX: M17.11 Unilateral primary osteoarthritis, right knee (principal); N18.4 Chronic kidney disease, stage 4 (severe); K51.90 Ulcerative colitis, unspecified, without complications; D64.9 Anemia, unspecified; I34.1 Nonrheumatic mitral (valve) prolapse; I12.9 Hypertensive chronic kidney disease with stage 1 through stage 4 chronic kidney disease, or unspecified chronic kidney disease; E78.5 Hyperlipidemia, unspecified; M81.0 Age-related osteoporosis without current pathological fracture; E55.9 Vitamin D deficiency, unspecified; F41.9 Anxiety disorder, unspecified; Z90.5 Acquired absence of kidney; Z85.528 Personal history of other malignant neoplasm of kidney
CPT/HCPCS: 36430; 73560; 80048; 85007; 85027; 86850; 86900; 86901; 86920; 86922; 94150; C1776; C9290; J0131; J0690; J0735; J1100; J1580; J1650; J1885; J1940; J2270; J2795; J3370; J7030; J7050; J7120; L1830; P9016